=== PATIENT | female | born 1995 | race Hispanic/Latino ===

== ENCOUNTER 2021-09-08 13:32 | Outpatient (CLI) | payer OTHER | END 2021-09-08 13:33 | disposition home or self-care (01) | LOC: BICULT 13:32 | PROVIDERS: ATTEND Family Medicine | DX: Z34.02 Encounter for supervision of normal first pregnancy, second trimester (principal); Z3A.26 26 weeks gestation of pregnancy | CPT/HCPCS: 76805 ==

== ENCOUNTER 2023-08-17 13:41 | Outpatient (CLI) | payer OTHER | END 2023-08-17 13:42 | disposition home or self-care (01) | LOC: BICULT 13:41 | PROVIDERS: ATTEND Family Medicine | DX: Z34.82 Encounter for supervision of other normal pregnancy, second trimester (principal); Z3A.19 19 weeks gestation of pregnancy | CPT/HCPCS: 76805 ==